=== PATIENT | female | born 1985 | race African-American/Black ===

== ENCOUNTER 2025-02-07 22:16 | Emergency (ER) | payer MEDICAID, OTHER ==
[~2025-02-07] VITALS: Ht 167.6 cm; Wt 185.4 kg
[2025-02-07 22:19] VITALS: O2SAT 98
[2025-02-07 23:32] LABS: BASOPHILS % 1.0 % (0.0-2.0); EOSINOPHILS % 0.8 % (0.0-5.0); HEMATOCRIT. 42.2 % (36.0-48.0); HEMOGLOBIN. 13.5 g/dL (12.0-16.0); LYMPHOCYTES % 28.4 % (20.0-50.0); MEAN PLATELET VOLUME 8.2 fl (7.4-10.4); MONOCYTES % 6.0 % (2.0-8.0); NEUTROPHILS % 63.8 % (40.0-76.0); PLATELET 329 x1000/uL (130-400); RED BLOOD CELL COUNT 4.85 mill/uL (4.2-5.4); RED CELL DISTRIBUTION WIDTH 13.3 % (11.6-14.6)
[2025-02-07 23:56] LABS: CREATININE 0.6 mg/dL (0.6-1.0); UREA NITROGEN BLOOD 7 mg/dL (9-23)
[2025-02-07 23:58] LABS: ASPARTATE AMINOTRANSFERASE 13 IU/L (<34); BILIRUBIN DIRECT < 0.1 mg/dL (<=3.0)
[2025-02-07 23:59] LABS: BILIRUBIN TOTAL 0.2 mg/dL (0.1-1.0); PROTEIN TOTAL 6.8 g/dL (6.0-8.3)
[2025-02-08] MEDS: MORPHINE SULFATE 4 MG/ML INJ (FOR IV/IM USE) IV ONE (00:07)
[2025-02-08] MEDS: ONDANSETRON HCL 4MG/2ML INJ IV ONE (00:07)
[2025-02-08] MEDS: SODIUM CHLORIDE 0.9% 1,000 ML IV ONE (00:07)
[2025-02-08 00:11] LABS: HCG SCREEN NEGATIVE
[2025-02-08] MEDS: IOHEXOL-300 100 ML BOTTLE ONE (03:29)
[2025-02-08] MEDS ORDERED: IBUP-2030 MT (03:52)
[2025-02-08] MEDS ORDERED: CEPH500C2 MT (03:52)
[2025-02-08 03:57] LABS: CLARITY URINE TURBID (CLEAR); COLOR URINE YELLOW (YELLOW); GLUCOSE URINE 3+ (NEGATIVE); KETONES URINE NEGATIVE (NEGATIVE); LEUKOCYTE ESTERASE URINE 2+ (NEGATIVE); NITRITE URINE POSITIVE (NEGATIVE); OCCULT BLOOD URINE 2+ (NEGATIVE); PH URINE 5.5 (4.5-8.0); PROTEIN URINE 1+ (NEGATIVE); SPECIFIC GRAVITY URINE 1.050 (1.005-1.030); UROBILINOGEN URINE 0.2 E.U./dL (0.2-1.0)
[2025-02-08] MEDS: CEPHALEXIN 250MG CAPSULE PO ONE (04:39)
[2025-02-08] MEDS: KETOROLAC 15MG/ML VIAL IV ONE (04:44)
[2025-02-08 04:45] VITALS: BP 138/64; PULSE 74; RESP 15; TEMP 36.6; O2SAT 100
[2025-02-08 05:33] LABS: WBC URINE TNTC /hpf (0-2)
[2025-02-08 05:36] LABS: BACTERIA URINE 4+; RBC URINE 15-25 /hpf (0-2); SQUAMOUS EPITHELIAL CELL URINE 1+ /lpf (RARE/1+)
== END 2025-02-08 04:47 | disposition home or self-care (01) ==
LOC: ER 22:16 → CMPBEDREQ 02-09 10:50
DX: N39.0 Urinary tract infection, site not specified (principal); E11.9 Type 2 diabetes mellitus without complications
CPT/HCPCS: 80076; 80048; 84703; 83690; 83735; 85025; 36415; 99285; 81003; 87086; 87186; 87077; 74177; 96374; 96375; J7030; Q9967; J1885; J2405; J2270; Z7610